=== PATIENT | male | born 1965 | race Caucasian/White ===

== ENCOUNTER 2017-01-11 19:28 | Emergency (ER) | payer BC ==
[2017-01-11] MEDS ORDERED: Proparacaine 0.5% Ophth Soln 15 ML Bottle ONE (20:45)
[2017-01-11] MEDS ORDERED: Acetaminophen/oxyCODONE 325-10 MG Tab PO ONE (21:04)
[2017-01-11] MEDS ORDERED: Proparacaine 0.5% Ophth Soln 15 ML Bottle EYERT STA (21:05)
--- NOTE | 2017-01-11 21:20 | EDM.PDOC ---
ED HPI EYE COMPLAINT - General Chief Complaint: Eye Problems Stated Complaint: PT RT EYE SWOLLEN Time Seen by Provider: 01/11/17 20:04 Source: Reports: Patient History Limitations: Reports: No limitations - History of Present Illness INITIAL COMMENTS - FREE TEXT/NARRATIVE: HISTORY AND PHYSICAL: History of present illness: 51-year-old male no history of diabetes or immunocompromise now presents with a four-day history of worsening upper and lower eyelid swelling and redness with pus discharge from the right eye. Patient did not seek any medical attention until today. Earlier he went to a clinic and was prescribed neomycin polymyxin B drops. He only put 3 drops in total since they were prescribed. He was also given by mouth Keflex. Patient states that his vision is normal and the light does not hurt his eyes but his upper and lower eyelids are very painful and swollen. Denies fevers chills sweats or shaking chills. No headache or stiff neck. Patient is very clear that he said no penile discharge no sexually transmitted disease manifestations has not recently been sexually active nor has he patronized a prostitute, or someone who might have a sexually transmitted disease. Review of systems: As per history of present illness and below otherwise all systems reviewed and negative. Past medical history: As per history of present illness and as reviewed below otherwise noncontributory. Surgical history: As per history of present illness and as reviewed below otherwise noncontributory. Social history: No reported history of drug or alcohol abuse. Family history: As per history of present illness and as reviewed below otherwise noncontributory. Physical exam: Eye exam described in plan below HEENT: Atraumatic, normocephalic, pupils reactive, negative for conjunctival pallor or scleral icterus, mucous membranes moist, throat clear, neck supple, nontender, trachea midline. Lungs: Clear to auscultation, breath sounds equal bilaterally, chest nontender. Heart: S1S2, regular, negative for clicks, rubs, or JVD. Abdomen: Soft, nondistended, nontender. Negative for masses or hepatosplenomegaly. Negative for costovertebral tenderness. Pelvis: Stable nontender. Genitourinary: Deferred. Rectal: Deferred. Extremities: Atraumatic, negative for cords or calf pain. Neurovascular unremarkable. Neuro: Awake, alert, oriented. Cranial nerves grossly unremarkable. Motor and sensory unremarkable throughout. Exam nonfocal. Diagnostics: [] Therapeutics: [] Impression: [] Plan: [Signs and symptoms consistent with bacterial conjunctivitis. Patient with no identifiable foreign body episode. Four-day history of gradual onset of eye redness irritation with discharge. Lids became swollen and painful. Patient did nothing for 4 days until going to the clinic this morning. Since treatment was initiated he is put in 3 drops of polymyxin antibiotic and taken two Keflex by mouth. 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 No periorbital fluctuance or crepitus. Patient does not have proptosis. Range of motion of the extraocular muscles are normal and painless. Patient does not have pain direct pupillary reflex nor with consensual. He has limbic sparing. Cornea is normal-appearing with no dye uptake. Normal anterior chamber grossly. No steamy cornea. Case discussed with Dr. Mikhail Pollard the nuclear medicine supervisor production supervisor trainee who is aware of history and findings and agrees with a dose of IV Rocephin at this time and to continue antibiotic drops as well as erythromycin ointment. Patient will take anti-inflammatory medications and analgesia and followup with Dr. Pollard tomorrow if necessary for worsening symptoms or Friday in the office if patient is improving. Patient has the number to call for Dr. Pollard. He agrees with outpatient followup and strict return precautions given. Definitive disposition and diagnosis as appropriate pending reevaluation and review of above. - Related Data Allergies/ADRs: Allergies bee stings Allergy (Uncoded 01/11/17 19:36) Other throat swelling Past Medical History HEENT History: Reports: None Cardiovascular History: Reports: None Respiratory History: Reports: None Gastrointestinal History: Reports: None Genitourinary History: Reports: None Musculoskeletal History: Reports: None Neurological History: Reports: None Psychiatric History: Reports: None Endocrine/Metabolic History: Reports: None Hematologic History: Reports: None Immunologic History: Reports: None Oncologic (Cancer) History: Reports: None Dermatologic History: Reports: None - Infectious Disease History Infectious Disease History: Reports: None - Past Surgical History GI Surgical History: Reports: Hernia, abdominal, Hernia, inguinal Social & Family History - Family History Family Medical History: Noncontributory - Tobacco Use Smoking Status *Q: Never Smoker - Recreational Drug Use Recreational Drug Use: No ED ROS GENERAL - Review of Systems Review Of Systems: See Below (History of present illness) ED EXAM GENERAL W FULL EYE - Physical Exam Exam: See Below (History of present illness) Course - Vital Signs Last Recorded V/S: Last Vital Signs Temp 36.9 C 01/11/17 19:36 Pulse 60 01/11/17 22:51 Resp 16 01/11/17 22:51 BP 129/82 01/11/17 22:51 Pulse Ox 97 01/11/17 22:51 - Orders/Labs/Meds Orders: Active Orders 24 hr Category Date Time Status GRAM STAIN [RM] Stat Lab 01/11/17 21:55 Uncollected Meds: Medications Discontinued Medications Generic Name Dose Route Start Last Admin Trade Name Freq PRN Reason Stop Dose Admin Ceftriaxone Sodium/Dextrose 1 50 mls @ 100 mls/hr 01/11/17 21:54 01/11/17 22: 47 gm/ Premix IV 01/11/17 22:23 100 mls/hr ONETIME ONE Administration Oxycodone/Acetaminophen 1 tab 01/11/17 21:04 01/11/17 21:11 Percocet 325-10 Mg PO 01/11/17 21:05 1 tab ONETIME ONE Administration Proparacaine HCl Confirm 01/11/17 20:45 01/11/17 21:12 Proparacaine 0.5% Ophth Soln Administered 01/11/17 20:46 Not Given Dose 15 ml .ROUTE .STK-MED ONE Proparacaine HCl 1 ml 01/11/17 21:05 01/11/17 21:07 Proparacaine 0.5% Ophth Soln EYERT 01/11/17 21:06 1 ml NOW STA Administration Departure - Departure Time of Disposition: 23:07 Disposition: Home, Self-Care 01 Condition: fair Clinical Impression: Conjunctivitis of right eye Instructions: Bacterial Conjunctivitis, [id number] Referrals: PCP,None [Primary Care Provider] - Forms: ED Department Discharge Additional Instructions: You have conjunctivitis. Apply cold compresses to minimize swelling and for relief of symptoms. With your antibiotic drops, Use 2 drops every 2 hours while awake, and use antibiotic ointment one quarter-inch at bedtime. Consider drops during the day you could also use one quarter-inch of antibiotic ointment 4 times a day. Finish Keflex as prescribed. Followup with Dr. Mikhail Pollard, the nuclear medicine supervisor. If you're improving call his office Friday morning for an appointment. If things are getting worse tomorrow call the office number and there will be a cell phone number to reach the doctor. He will discuss her symptoms and if necessary see you in the office tomorrow. - My Orders Last 24 Hours: My Active Orders 01/11/17 21:55 GRAM STAIN [RM] Stat - Assessment/Plan Last 24 Hours: My Active Orders 01/11/17 21:55 GRAM STAIN [RM] Stat
[2017-01-11] MEDS ORDERED: cefTRIAXone 1 GM in Premix Bag 1 BAG IV ONE (21:54)
[2017-01-11] MEDS ORDERED: Erythromycin Base 0.5% Ophth Oint 1 GM Tube EYERT STA (23:38)
[2017-01-11] MEDS ORDERED: Acetaminophen/oxyCODONE 325-5 MG Tab PO ONE (23:43)
[2017-01-12 00:06] VITALS: BP 171/101
== END 2017-01-12 00:02 | disposition home or self-care (01) ==
LOC: MW.ED 19:28
DX: H10.9 Unspecified conjunctivitis (principal); Z91.030 Bee allergy status
CPT/HCPCS: 87205; 96365; 99283; A9270; J0696; 99284